=== PATIENT | female | born 1995 ===

== ENCOUNTER 2020-11-12 21:20 | Emergency (ER) | payer SELFPAY ==
[2020-11-12 22:30] LABS: Absolute Lymphocytes (CBC) 3.3 K/uL (0.7-4.9); Basophils % 0.5 % (0-1.3); Hematocrit 39.5 % (36.0-45.0); Lymphocytes % 27.7 % (15.3-44.8); MPV 8.6 fL (7.6-11.3); RBC Red Blood Cell Count 4.54 M/uL (3.86-4.86)
[2020-11-12 23:03] LABS: Urine Blood 2+ (Negative); Urine Glucose Negative (Negative); Urine Protein Negative (Negative)
[2020-11-12 23:03] LABS: BUN Blood Urea Nitrogen 10 mg/dL (7-18); Bicarbonate 24 mmol/L (21-32); Glucose Level 94 mg/dL (74-106); HCG, Quantitative 128686 mIU/mL (1-3); Potassium 3.9 mmol/L (3.5-5.1); Sodium Level 136 mmol/L (136-145)
--- NOTE | 2020-11-12 23:51 | EDPHYS ---
Physician Documentation [facility] Name: Sonia Hunter Age: 25 yrs Sex: Female : 1995 Arrival Date: 11/12/2020 Time: 21:24 Bed 5 Private MD: ED Physician Petr Jain HPI: 11/12 22:14 This 25 yrs old Female presents to ER via EMS with complaints of Vaginal Bleeding, + jmm Preg <12wks. 22:14 The patient presents to the emergency department with vaginal bleeding. The estimated jmm gestational age is 8 weeks. It is unknown whether or not the patient has had similar symptoms in the past. PACKAGE WINDER: 21:44 LMP 09/08/2020 rr5 Historical: - Allergies: 21:42 No Known Allergies; rr5 - Home Meds: 21:42 None [Active]; rr5 - PMHx: 21:42 None; rr5 - PSHx: 21:42 None; rr5 - Immunization history:: Adult Immunizations up to date. - Social history:: Smoking status: unknown Patient/guardian denies using alcohol, street drugs. ROS: 22:14 Constitutional: Negative for fever, chills, and weight loss, Cardiovascular: Negative jmm for chest pain, palpitations, and edema, Respiratory: Negative for shortness of breath, cough, wheezing, and pleuritic chest pain, Abdomen/GI: Negative for abdominal pain, nausea, vomiting, diarrhea, and constipation. 22:14 : Positive for vaginal bleeding. 22:14 All other systems are negative. Exam: 22:14 Constitutional: This is a well developed, well nourished patient who is awake, alert, jmm and in no acute distress. Head/Face: atraumatic. Eyes: EOMI, no conjunctival erythema appreciated ENT: Moist Mucus Membranes Neck: Trachea midline, Supple Chest/axilla: Normal chest wall appearance and motion. Cardiovascular: Regular rate and rhythm. No edema appreciated Respiratory: Normal respirations, no respiratory distress appreciated Abdomen/GI: Non distended, soft Back: Normal ROM Skin: General appearance color normal MS/ Extremity: Moves all extremities, no obvious deformities appreciated, no edema noted to the lower extremities Neuro: Awake and alert, normal gait Psych: Behavior is normal, Mood is normal, Patient is cooperative and pleasant Vital Signs: 21:30 BP 109 / 81; Pulse 79; Resp 16; Temp 98.5; Pulse Ox 99% ; Weight 58.51 kg; Height 4 ft. rr5 11 in. (152 cm); Pain 5/10; 23:56 BP 110 / 85; Pulse 80; Resp 18; Temp 98; Pulse Ox 100% on R/A; mg2 21:30 Body Mass Index 25.33 (58.51 kg, 152 cm) rr5 MDM: 22:14 Patient medically screened. [facility] 23:48 Data reviewed: vital signs, nurses notes. Counseling: I had a detailed discussion with yasmine the patient and/or guardian regarding: the historical points, exam findings, and any diagnostic results supporting the discharge/admit diagnosis, lab results, radiology results, the need for outpatient follow up, to return to the emergency department if symptoms worsen or persist or if there are any questions or concerns that arise at home. ED course: Patient is alert and non toxic in appearance in the ED. Patient is advised to follow up with pcp and otherwise given strict return precautions. patient understood and agrees with the plan of care. . 11/12 22:09 Order name: Quantitative Hcg [facility] 11/12 22:09 Order name: Abo/rh Typing; Complete Time: 22:56 [facility] 11/12 22:09 Order name: Basic Metabolic Panel; Complete Time: 23:04 [facility] 11/12 22:09 Order name: CBC with Diff; Complete Time: 22:56 [facility] 11/12 22:09 Order name: HCG, Quantitative; Complete Time: 23:04 [facility] 11/12 23:02 Order name: Urine Dipstick-Ancillary; Complete Time: 23:04 [facility] 11/12 22:09 Order name: IV Saline Lock; Complete Time: 22:21 [facility] 11/12 22:09 Order name: Labs collected and sent; Complete Time: 22:21 [facility] 11/12 22:09 Order name: NPO; Complete Time: 22:21 [facility] 11/12 22:09 Order name: Urine Dipstick-Ancillary (obtain specimen); Complete Time: 23:02 [facility] 11/12 22:14 Order name: US 1st Trimest Single 1st Fetus [facility] 11/12 23:02 Order name: Urine --Ancillary (enter results); Complete Time: 23:47 tt3 Administered Medications: No medications were administered Disposition: 11/13 03:32 Co-signature as Attending Physician, Petr Jain MD. [email or web address] Disposition: 11/12/20 23:50 Discharged to Home. Impression: Other abnormal uterine and vaginal bleeding. - Condition is Stable. - Discharge Instructions: Subchorionic Hematoma. - Medication Reconciliation Form, Thank You Letter, Antibiotic Education, Prescription Opioid Use form. - Follow up: Private Physician; When: 2 - 3 days; Reason: Recheck today's complaints, Continuance of care, Repeat Beta-HCG (48 Hours), Re-evaluation by your physician. Signatures: Dispatcher [employer] EDMS Prashant Montenegro PA PA jmm Gardose, Michele, RN RN [facility] Kanu Anderson RN RN rr5 Petr Jain MD MD [email or web address] Corrections: (The following items were deleted from the chart) 11/12 23:57 23:50 11/12/2020 23:50 Discharged to Home. Impression: Other abnormal uterine and mg2 vaginal bleeding. Condition is Stable. Forms are Medication Reconciliation Form, Thank You Letter, Antibiotic Education, Prescription Opioid Use. Follow up: Private Physician; When: 2 - 3 days; Reason: Recheck today's complaints, Continuance of care, Repeat Beta-HCG (48 Hours), Re-evaluation by your physician. yasmine
--- NOTE | 2020-11-12 23:51 | ER ---
Nurse's Notes [facility] Name: Sonia Hunter Age: 25 yrs Sex: Female : 1995 Arrival Date: 11/12/2020 Time: 21:24 Bed 5 Private MD: Diagnosis: Other abnormal uterine and vaginal bleeding Presentation: 11/12 21:30 Chief complaint: Chief complaint: Patient states: when i go went to restroom a gush of rr5 blood went out. I am having back pain going to the lower abdomen. no nausea, no vomiting, no fever. test positive we have doctors appointment on sunday. 21:30 Coronavirus screen: Client denies travel out of the [place] in the last 14 days. At this rr5 time, the client does not indicate any symptoms associated with coronavirus-19. Ebola Screen: Patient negative for fever greater than or equal to 101.5 degrees Fahrenheit, and additional compatible Ebola Virus Disease symptoms Patient denies exposure to infectious person. Patient denies travel to an Ebola-affected area in the 21 days before illness onset. Initial Sepsis Screen: Does the patient meet any 2 criteria? No. Patient's initial sepsis screen is negative. Does the patient have a suspected source of infection? No. Patient's initial sepsis screen is negative. Risk Assessment: Do you want to hurt yourself or someone else? Patient reports no desire to harm self or others. Onset of symptoms was November 12, 2020. 21:30 Method Of Arrival: EMS: [facility] rr5 21:30 Acuity: GASPER 3 rr5 21:30 [facility] [id number]. rr5 PIGMENT PUSHER: 21:44 LMP 09/08/2020 rr5 Historical: - Allergies: 21:42 No Known Allergies; rr5 - Home Meds: 21:42 None [Active]; rr5 - PMHx: 21:42 None; rr5 - PSHx: 21:42 None; rr5 - Immunization history:: Adult Immunizations up to date. - Social history:: Smoking status: unknown Patient/guardian denies using alcohol, street drugs. Screenin:24 Abuse screen: Denies threats or abuse. Denies injuries from another. Nutritional mg2 screening: No deficits noted. Tuberculosis screening: No symptoms or risk factors identified. Fall Risk IV access (20 points). Assessment: 22:23 General: Appears in no apparent distress. comfortable, Behavior is calm, cooperative. mg2 Pain: Complains of pain in abdomen. Neuro: Level of Consciousness is awake, alert, obeys commands, Oriented to person, place, time, situation. Cardiovascular: Capillary refill < 3 seconds Patient's skin is warm and dry. Respiratory: Airway is patent Respiratory effort is even, unlabored, Respiratory pattern is regular, symmetrical. GI: No signs and/or symptoms were reported involving the gastrointestinal system. : Reports vaginal bleeding that is. EENT: No signs and/or symptoms were reported regarding the EENT system. Derm: Skin is intact, is healthy with good turgor, Skin is pink, warm \T\ dry. normal. Musculoskeletal: Circulation, motion, and sensation intact. Capillary refill < 3 seconds. 23:30 Reassessment: Patient appears in no apparent distress at this time. Patient and/or jb4 family updated on plan of care and expected duration. Pain level reassessed. Patient is alert, oriented x 3, equal unlabored respirations, skin warm/dry/pink. Provider is at the bedside explaining plan of care. Vital Signs: 21:30 BP 109 / 81; Pulse 79; Resp 16; Temp 98.5; Pulse Ox 99% ; Weight 58.51 kg; Height 4 ft. rr5 11 in. (152 cm); Pain 5/10; 23:56 BP 110 / 85; Pulse 80; Resp 18; Temp 98; Pulse Ox 100% on R/A; mg2 21:30 Body Mass Index 25.33 (58.51 kg, 152 cm) rr5 ED Course: 21:24 Patient arrived in ED. bp1 21:40 Triage completed. rr5 21:43 Arm band placed on right wrist. rr5 22:08 Prashant Montenegro PA is PHCP. jmm 22:08 Petr Jain MD is Attending Physician. jmm 22:10 Bennie Earl, SANIYA is Primary Nurse. mg2 22:15 Inserted saline lock: 20 gauge in right antecubital area, using aseptic technique. mg2 Blood collected. 22:24 Patient has correct armband on for positive identification. Pulse ox on. NIBP on. Door mg2 closed. Warm blanket given. 22:32 US 1st Trimest Single 1st Fetus In Process Unspecified. EDMS 23:57 No provider procedures requiring assistance completed. IV discontinued, intact, mg2 bleeding controlled, No redness/swelling at site. Pressure dressing applied. Administered Medications: No medications were administered Outcome: 23:50 Discharge ordered by MD. jmelizabeth 23:57 Discharged to home ambulatory, with family. mg2 23:57 Condition: stable 23:57 Discharge instructions given to patient, family, Instructed on discharge instructions, follow up and referral plans. Demonstrated understanding of instructions, follow-up care. 23:57 Patient left the ED. mg2 Signatures: Dispatcher [employer] EDMS Prashant Montenegro PA PA Michael Russo, RN RN jb4 Bennie Earl RN RN mg2 Kanu Anderson RN RN rr5 Yvette Maldonado Corrections: (The following items were deleted from the chart) 21:43 21:30 Chief complaint: Patient states: when i go went to restroom a gush of blood went rr5 out. I am having back pain going to the lower abdomen. no nausea, no vomiting, no fever. Chief complaint: Patient states: when i go went to restroom a gush of blood went out. I am having back pain going to the lower abdomen. no nausea, no vomiting, no fever. rr5
[2020-11-13 00:36] VITALS: BP 110/85; TEMP 98; O2SAT 100
--- NOTE | 2020-11-13 11:19 | RAD REPORT ---
EXAM DESCRIPTION: US - 1St Trimest Single 1St Fetus - 11/12/2020 10:32 pm CLINICAL HISTORY: VAGINAL BLEEDING Pelvic pain COMPARISON: No comparisons FINDINGS: A single gestational sac is seen within the uterus. The shape of the sac is within normal limits for gestational age. Within the sac is a single pole with crown-rump length of 11 mm, co rrelating to estimated gestational age of 7 weeks 1 day. Estimated date of delivery is 06/30/2021. Heart rate is 154 BPM. The placenta is not yet developed due to early gestational age. Small subchorionic bleed is seen chapis uring 12 x 5 mm. The left ovary is normal in size, shape and echotexture with normal blood flow. The right ovary is ob scured by bowel gas. No adnexal masses. IMPRESSION: Single live early intrauterine gestation with estimated gestational age of 7 weeks 1 day , HILARIO 06/30/2021. 12 x 5 mm small subchorionic bleed.
== END 2020-11-12 23:57 | disposition home or self-care (01) ==
LOC: ER 21:20 → EDBD 21:20 → ER 23:57
DX: O20.8 Other hemorrhage in early pregnancy (principal); Z3A.08 8 weeks gestation of pregnancy
CPT/HCPCS: 36415; 76801; 80048; 81003; 81025; 84702; 85025; 86900; 86901; 99284